=== PATIENT | male | born 1995 | race Caucasian/White ===

== ENCOUNTER 2016-08-06 02:28 | Emergency (ER) | payer MEDICAID ==
[~2016-08-06] VITALS: Ht 172.7 cm; Wt 105.0 kg
[2016-08-06] MEDS ORDERED: VISCOUS LIDOCAINE 2% 15 ML UDC PO STA (03:30)
[2016-08-06] MEDS ORDERED: SODIUM CHLORIDE 0.9% 1,000 ML IV ONE (03:30)
[2016-08-06] MEDS ORDERED: MAGNESIUM/ALUMINUM HYDROXIDE/SIMETHICONE 30ML UDC PO STA (03:30)
[2016-08-06] MEDS ORDERED: FAMOTIDINE 20MG/2ML VIAL IV STA (03:30)
[2016-08-06] MEDS ORDERED: KETOROLAC 30MG/ML VIAL IV ONE (05:00)
[2016-08-06] MEDS ORDERED: ONDANSETRON HCL 4MG/2ML VIAL IV ONE (05:00)
[2016-08-06 06:45] VITALS: BP 120/70
== END 2016-08-06 07:03 | disposition home or self-care (01) ==
LOC: ER 02:28
DX: K21.9 Gastro-esophageal reflux disease without esophagitis (principal); F17.200 Nicotine dependence, unspecified, uncomplicated
CPT/HCPCS: 96361; 96374; 96375; 99284; J1885; J2405; J3490; J7030

== ENCOUNTER 2017-07-24 07:34 | Emergency (ER) | payer MEDICAID ==
[~2017-07-24] VITALS: Ht 172.7 cm; Wt 107.0 kg
[2017-07-24] MEDS ORDERED: ONDANSETRON HCL 4MG/2ML VIAL IV STA (08:57)
[2017-07-24] MEDS ORDERED: SODIUM CHLORIDE 0.9% 1,000 ML IV ONE (08:57)
[2017-07-24] MEDS ORDERED: MORPHINE SULFATE 4 MG/ML CPJ (NOT FOR IM USE) IV STA (08:57)
[2017-07-24 09:16] LABS: BASOPHILS % 0.4 % (0.0-2.0); EOSINOPHILS % 0.4 % (0.0-5.0); HEMATOCRIT. 43.5 % (42.0-52.0); HEMOGLOBIN. 15.3 g/dL (14.0-18.0); LYMPHOCYTES % 12.2 % (20.0-50.0); MEAN CORPUSCULAR HEMOGLOBIN 29.7 pg (28.0-32.0); MEAN CORPUSCULAR VOLUME 84.4 fL (80.0-94.0); MEAN PLATELET VOLUME 8.7 fl (7.4-10.4); MONOCYTES % 3.9 % (2.0-8.0); NEUTROPHILS % 83.1 % (40.0-76.0); PLATELET 212 x1000/uL (130-400); RED BLOOD CELL COUNT 5.15 mill/uL (4.7-6.1); RED CELL DISTRIBUTION WIDTH 13.6 % (11.6-14.6)
[2017-07-24 09:21] LABS: PROTHROMBIN TIME 10.7 sec (9.4-11.6)
[2017-07-24 09:24] LABS: CHLORIDE 106 mEq/L (98-107)
[2017-07-24 10:08] LABS: CLARITY URINE CLOUDY (CLEAR); COLOR URINE YELLOW (YELLOW); KETONES URINE NEGATIVE (NEGATIVE); LEUKOCYTE ESTERASE URINE NEGATIVE (NEGATIVE); NITRITE URINE NEGATIVE (NEGATIVE); OCCULT BLOOD URINE NEGATIVE (NEGATIVE); PROTEIN URINE NEGATIVE (NEGATIVE); SPECIFIC GRAVITY URINE 1.024 (1.005-1.030); UROBILINOGEN URINE 0.2 E.U./dL (0.2-1.0)
[2017-07-24] MEDS ORDERED: PANTOPRAZOLE SODIUM 40 MG/VIAL IV SCH (11:45)
[2017-07-24 13:51] VITALS: BP 108/78
== END 2017-07-24 13:54 | disposition home or self-care (01) ==
LOC: ER 07:57
DX: R10.13 Epigastric pain (principal); F17.200 Nicotine dependence, unspecified, uncomplicated; K21.9 Gastro-esophageal reflux disease without esophagitis
CPT/HCPCS: 36415; 74018; 80053; 81003; 83690; 85025; 85610; 96361; 96374; 96375; 99285; C9113; J2270; J2405; J7030; Z7610